=== PATIENT | male | born 1960 | race Caucasian/White ===

== ENCOUNTER 2023-02-03 04:34 | Emergency (ER) | payer MEDICAID ==
[~2023-02-03] VITALS: Ht 180.3 cm; Wt 68.2 kg
[~2023-02-03 04:34] MED LIST: CLIN-97 PO; NO HOME MEDS; ONDA4TAB59 PO
[2023-02-03 04:40] VITALS: BP 111/74
[2023-02-03] MEDS ORDERED: HYDROcodone/acetaminophen 10/325mg tab PO ONE (04:50)
[2023-02-03] MEDS ORDERED: IBUP-1985 PO (05:15)
[2023-02-03] MEDS ORDERED: HYDR-3965 PO (05:15)
== END 2023-02-03 05:27 | disposition home or self-care (01) ==
LOC: ER 04:35
DX: M25.512 Pain in left shoulder (principal); G89.29 Other chronic pain; M54.9 Dorsalgia, unspecified; Z79.899 Other long term (current) drug therapy
CPT/HCPCS: 73030; 99283

== ENCOUNTER 2023-03-30 07:48 | Emergency (ER) | payer MEDICAID ==
[~2023-03-30] VITALS: Ht 180.3 cm; Wt 58.0 kg
[~2023-03-30 07:48] MED LIST changes: +IBUP-1985 PO
[2023-03-30 07:55] VITALS: TEMP 96.9
[2023-03-30 08:42] LABS: CLARITY,URINE CLEAR (Clear); COLOR,URINE YELLOW (Yellow); GLUCOSE, URINE NEGATIVE (Neg); KETONES,URINE NEGATIVE (Neg); LEUKOCYTE ESTERASE ,URINE NEGATIVE (Neg); NITRITES, URINE NEGATIVE (Neg); OCCULT BLOOD,URINE NEGATIVE (Neg); PH,URINE 5.5 (4.8-8.0); PROTEIN,URINE NEGATIVE (Neg); UA COLLECTION TYPE CLN CATCH MIDSTREAM; UROBILINOGEN,URINE 0.2 E.U/dL (0.2-1.0)
[2023-03-30 08:47] LABS: BASOPHILS % (AUTO) 0.2 % (0-1); EOSINOPHILS # (AUTO) 0.4 X10'3 (0-0.9); EOSINOPHILS % (AUTO) 5.5 % (0-6); HEMATOCRIT 40.7 % (42.0-52.0); HEMOGLOBIN 13.6 g/dl (14.0-17.9); LYMPHOCYTES # (AUTO) 1.7 X10'3 (1.1-4.8); LYMPHOCYTES % (AUTO) 21.8 % (21-51); MEAN CORPUSCULAR HEMOGLOBIN 29.2 PG (27.0-31.0); MEAN CORPUSCULAR HGB CONC 33.4 g/dL (33.0-36.5); MEAN CORPUSCULAR VOLUME 87.5 FL (78-98); MEAN PLATELET VOLUME 7.1 FL (7.4-10.4); MONOCYTES # (AUTO) 0.7 X10'3 (0-0.9); MONOCYTES % (AUTO) 8.5 % (2-12); NEUTROPHILS # (AUTO) 4.9 X10'3 (1.8-7.7); PLATELET COUNT 315 X10'3 (140-440); RED BLOOD COUNT 4.65 X10'6 (4.70-6.10); RED CELL DISTRIBUTION WIDTH 13.8 % (11.5-14.5); WHITE BLOOD COUNT 7.6 X10'3 (4.5-11.0)
[2023-03-30 09:03] LABS: ALANINE AMINOTRANSFERASE 28 U/L (12-78); ALBUMIN 3.4 G/DL (3.4-5.0); ALKALINE PHOSPHATASE 76 IU/L (46-116); ANION GAP 8 (8-16); ASPARTATE AMINO TRANSFERASE 18 U/L (10-37); BILIRUBIN,TOTAL 0.3 MG/DL (0.1-1.0); BLOOD UREA NITROGEN 17 MG/DL (7-18); BUN/CREATININE RATIO 19.8 (10.0-20.0); CALCIUM 8.7 MG/DL (8.5-10.1); CHLORIDE 107 MMOL/L (99-107); CREATININE 0.86 MG/DL (0.60-1.10); GLUCOSE 111 MG/DL (70-104); LIPASE 133 U/L (73-393); POTASSIUM 4.1 MMOL/L (3.5-5.1); SODIUM 143 MMOL/L (135-145); TOTAL CARBON DIOXIDE 28.5 MMOL/L (24-32); TOTAL PROTEIN 6.9 G/DL (6.4-8.2); eGFR 90 ML/MIN
[2023-03-30] MEDS ORDERED: iohexol 300mg/ml 100ml inj. ONE (09:05)
[2023-03-30 09:06] VITALS: BP 127/77; PULSE 55; O2SAT 98
[2023-03-30 09:08] VITALS: RESP 16
== END 2023-03-30 11:47 | disposition home or self-care (01) ==
LOC: ER 07:48
DX: R10.84 Generalized abdominal pain (principal); K59.00 Constipation, unspecified; G89.29 Other chronic pain; Z79.2 Long term (current) use of antibiotics; Z79.899 Other long term (current) drug therapy
CPT/HCPCS: 36415; 74177; 80053; 81003; 83690; 85025; 99285; J3490; Q9967

== ENCOUNTER 2023-09-04 13:42 | Emergency (ER) | payer MEDICARE, MEDICAID ==
[~2023-09-04] VITALS: Ht 180.3 cm; Wt 70.5 kg
[2023-09-04 14:31] LABS: BASOPHILS # (AUTO) 0.1 X10'3 (0-0.2); BASOPHILS % (AUTO) 1.2 % (0-1); EOSINOPHILS # (AUTO) 0.1 X10'3 (0-0.9); HEMATOCRIT 40.7 % (42.0-52.0); HEMOGLOBIN 13.5 g/dl (14.0-17.9); LYMPHOCYTES # (AUTO) 1.4 X10'3 (1.1-4.8); LYMPHOCYTES % (AUTO) 20.4 % (21-51); MEAN CORPUSCULAR HEMOGLOBIN 29.6 PG (27.0-31.0); MEAN CORPUSCULAR HGB CONC 33.2 g/dL (33.0-36.5); MEAN CORPUSCULAR VOLUME 89.3 FL (78-98); MEAN PLATELET VOLUME 7.1 FL (7.4-10.4); MONOCYTES # (AUTO) 0.6 X10'3 (0-0.9); MONOCYTES % (AUTO) 8.6 % (2-12); NEUTROPHILS # (AUTO) 4.6 X10'3 (1.8-7.7); NEUTROPHILS % (AUTO) 67.8 % (42-75); PLATELET COUNT 251 X10'3 (140-440); RED BLOOD COUNT 4.56 X10'6 (4.70-6.10); RED CELL DISTRIBUTION WIDTH 13.6 % (11.5-14.5); WHITE BLOOD COUNT 6.8 X10'3 (4.5-11.0)
[2023-09-04 14:48] LABS: ALANINE AMINOTRANSFERASE 36 U/L (12-78); ALBUMIN 3.3 G/DL (3.4-5.0); ALBUMIN/GLOBULIN RATIO 0.9 (1.1-1.5); ALKALINE PHOSPHATASE 75 IU/L (46-116); ANION GAP 10 (8-16); ASPARTATE AMINO TRANSFERASE 27 U/L (10-37); BILIRUBIN,TOTAL 0.3 MG/DL (0.1-1.0); BLOOD UREA NITROGEN 15 MG/DL (7-18); BUN/CREATININE RATIO 20.5 (10.0-20.0); CALCIUM 8.9 MG/DL (8.5-10.1); CHLORIDE 105 MMOL/L (99-107); CREATININE 0.73 MG/DL (0.60-1.10); GLUCOSE 113 MG/DL (70-104); LIPASE 80 U/L (16-77); POTASSIUM 4.1 MMOL/L (3.5-5.1); SODIUM 137 MMOL/L (135-145); TOTAL CARBON DIOXIDE 22.4 MMOL/L (24-32); eCRCL 101 ML/MIN; eGFR > 90 ML/MIN
[2023-09-04] MEDS ORDERED: HYDROmorphone 1 mg/ml syringe IV ONE (15:30)
[2023-09-04] MEDS ORDERED: ondansetron/PF 4mg/2ml inj IV ONE (15:30)
[2023-09-04] MEDS ORDERED: normal saline 1000ML IV soln IVB ONE (15:30)
[2023-09-04] MEDS ORDERED: iohexol 300mg/ml 100ml inj. ONE (15:31)
[2023-09-04 16:29] LABS: BILIRUBIN,URINE NEGATIVE (Neg); CLARITY,URINE CLEAR (Clear); COLOR,URINE YELLOW (Yellow); GLUCOSE, URINE NEGATIVE (Neg); KETONES,URINE NEGATIVE (Neg); LEUKOCYTE ESTERASE ,URINE NEGATIVE (Neg); OCCULT BLOOD,URINE NEGATIVE (Neg); PROTEIN,URINE NEGATIVE (Neg); UROBILINOGEN,URINE 0.2 E.U/dL (0.2-1.0)
[2023-09-04 16:32] LABS: UA COLLECTION TYPE URINAL
[2023-09-04 16:33] LABS: NITRITES, URINE NEGATIVE (Neg)
[2023-09-04 19:21] VITALS: BP 114/84; PULSE 73; RESP 16; TEMP 98; O2SAT 99
== END 2023-09-04 19:24 | disposition home or self-care (01) ==
LOC: ER 13:42
DX: R10.84 Generalized abdominal pain (principal); M54.30 Sciatica, unspecified side; G89.29 Other chronic pain; Z79.2 Long term (current) use of antibiotics; Z79.899 Other long term (current) drug therapy
CPT/HCPCS: 36415; 74177; 80053; 81003; 83690; 85025; 96361; 96374; 96375; 99285; J1170; J2405; J3490; J7030; Q9967

== ENCOUNTER 2024-02-06 16:24 | Emergency (ER) | payer MEDICARE, MEDICAID | END 2024-02-06 18:12 | disposition left against medical advice (07) | LOC: ER 16:24 | DX: R10.84 Generalized abdominal pain (principal); Z53.21 Procedure and treatment not carried out due to patient leaving prior to being seen by health care provider ==

== ENCOUNTER 2024-02-12 11:17 | Emergency (ER) | payer MEDICARE, MEDICAID ==
[~2024-02-12] VITALS: Ht 175.3 cm; Wt 65.0 kg
[2024-02-12 11:38] LABS: BASOPHILS # (AUTO) 0.1 X10'3 (0-0.2); BASOPHILS % (AUTO) 0.8 % (0-1); EOSINOPHILS # (AUTO) 0.2 X10'3 (0-0.9); EOSINOPHILS % (AUTO) 2.7 % (0-6); HEMATOCRIT 38.2 % (42.0-52.0); HEMOGLOBIN 12.4 g/dl (14.0-17.9); LYMPHOCYTES # (AUTO) 1.4 X10'3 (1.1-4.8); MEAN CORPUSCULAR HEMOGLOBIN 28.8 PG (27.0-31.0); MEAN CORPUSCULAR HGB CONC 32.4 g/dL (33.0-36.5); MEAN CORPUSCULAR VOLUME 88.8 FL (78-98); MEAN PLATELET VOLUME 7.1 FL (7.4-10.4); MONOCYTES # (AUTO) 0.7 X10'3 (0-0.9); MONOCYTES % (AUTO) 9.3 % (2-12); NEUTROPHILS # (AUTO) 5.3 X10'3 (1.8-7.7); NEUTROPHILS % (AUTO) 69.2 % (42-75); PLATELET COUNT 261 X10'3 (140-440); RED BLOOD COUNT 4.31 X10'6 (4.70-6.10); RED CELL DISTRIBUTION WIDTH 14.1 % (11.5-14.5); WHITE BLOOD COUNT 7.6 X10'3 (4.5-11.0)
[2024-02-12] MEDS: ketorolac tromethamine 15mg/ml inj. IV ONE (11:50)
[2024-02-12 11:56] LABS: ALANINE AMINOTRANSFERASE 35 U/L (12-78); ALBUMIN 3.3 G/DL (3.4-5.0); ALBUMIN/GLOBULIN RATIO 0.9 (1.1-1.5); ALKALINE PHOSPHATASE 68 IU/L (46-116); ANION GAP 5 (8-16); ASPARTATE AMINO TRANSFERASE 20 U/L (10-37); BILIRUBIN,TOTAL 0.2 MG/DL (0.1-1.0); BLOOD UREA NITROGEN 18 MG/DL (7-18); BUN/CREATININE RATIO 21.4 (10.0-20.0); CHLORIDE 105 MMOL/L (99-107); CREATININE 0.84 MG/DL (0.60-1.10); GLUCOSE 110 MG/DL (70-104); LIPASE 36 U/L (16-77); POTASSIUM 4.3 MMOL/L (3.5-5.1); SODIUM 140 MMOL/L (135-145); TOTAL CARBON DIOXIDE 29.6 MMOL/L (24-32); TOTAL PROTEIN 6.8 G/DL (6.4-8.2); eCRCL 81 ML/MIN; eGFR > 90 ML/MIN
[2024-02-12 12:00] LABS: BILIRUBIN,URINE NEGATIVE (Neg); CLARITY,URINE CLEAR (Clear); COLOR,URINE YELLOW (Yellow); GLUCOSE, URINE NEGATIVE (Neg); KETONES,URINE NEGATIVE (Neg); LEUKOCYTE ESTERASE ,URINE NEGATIVE (Neg); NITRITES, URINE NEGATIVE (Neg); OCCULT BLOOD,URINE NEGATIVE (Neg); PH,URINE 5.5 (4.8-8.0); PROTEIN,URINE NEGATIVE (Neg); UROBILINOGEN,URINE 0.2 E.U/dL (0.2-1.0)
[2024-02-12 12:05] LABS: UA COLLECTION TYPE CLN CATCH MIDSTREAM
[2024-02-12] MEDS ORDERED: DOCU100C40 PO (13:00)
[2024-02-12 13:19] VITALS: BP 93/65; PULSE 62; RESP 16; TEMP 97.7; O2SAT 100
== END 2024-02-12 13:24 | disposition home or self-care (01) ==
LOC: ER 11:17
DX: R10.31 Right lower quadrant pain (principal); G89.29 Other chronic pain; M54.9 Dorsalgia, unspecified; F17.210 Nicotine dependence, cigarettes, uncomplicated; Z79.1 Long term (current) use of non-steroidal anti-inflammatories (NSAID); Z79.2 Long term (current) use of antibiotics; Z79.899 Other long term (current) drug therapy
CPT/HCPCS: 36415; 74176; 80053; 81003; 83690; 84145; 85025; 96374; 99285; J1885

== ENCOUNTER 2024-04-30 12:50 | Emergency (ER) | payer MEDICARE, MEDICAID ==
[~2024-04-30] VITALS: Ht 170.2 cm; Wt 63.6 kg
[~2024-04-30 12:50] MED LIST changes: +DOCU100C40 PO
[2024-04-30] MEDS: normal saline 1000ML IV soln IVB ONE (13:35)
[2024-04-30] MEDS: glycopyrrolate 0.2mg/ml inj IV ONE (13:37)
[2024-04-30] MEDS: LORazepam 2 mg/ml vial IV ONE (13:38)
[2024-04-30] MEDS: diphenhydrAMINE 50 mg/ml inj IV ONE (13:38)
[2024-04-30] MEDS: metoclopramide 5 mg/ml inj IV ONE (13:39)
[2024-04-30] MEDS: ketorolac trometh 15mg/ml vial 15 MG/ML ML IV ONE (13:40)
[2024-04-30 13:47] LABS: BASOPHILS # (AUTO) 0.1 X10'3 (0-0.2); BASOPHILS % (AUTO) 1.4 % (0-1); EOSINOPHILS # (AUTO) 0.2 X10'3 (0-0.9); EOSINOPHILS % (AUTO) 4.6 % (0-6); HEMATOCRIT 39.2 % (42.0-52.0); HEMOGLOBIN 12.9 g/dl (14.0-17.9); LYMPHOCYTES # (AUTO) 1.7 X10'3 (1.1-4.8); LYMPHOCYTES % (AUTO) 34.1 % (21-51); MEAN CORPUSCULAR HEMOGLOBIN 29.1 PG (27.0-31.0); MEAN CORPUSCULAR HGB CONC 32.8 g/dL (33.0-36.5); MEAN CORPUSCULAR VOLUME 88.8 FL (78-98); MEAN PLATELET VOLUME 7.5 FL (7.4-10.4); MONOCYTES # (AUTO) 0.5 X10'3 (0-0.9); MONOCYTES % (AUTO) 9.6 % (2-12); NEUTROPHILS # (AUTO) 2.6 X10'3 (1.8-7.7); NEUTROPHILS % (AUTO) 50.3 % (42-75); PLATELET COUNT 274 X10'3 (140-440); RED BLOOD COUNT 4.41 X10'6 (4.70-6.10); RED CELL DISTRIBUTION WIDTH 13.9 % (11.5-14.5); WHITE BLOOD COUNT 5.1 X10'3 (4.5-11.0)
[2024-04-30 14:03] LABS: ALANINE AMINOTRANSFERASE 43 U/L (12-78); ALBUMIN 3.4 G/DL (3.4-5.0); ALKALINE PHOSPHATASE 74 IU/L (46-116); ANION GAP 9 (8-16); ASPARTATE AMINO TRANSFERASE 24 U/L (10-37); BILIRUBIN,TOTAL 0.3 MG/DL (0.1-1.0); BLOOD UREA NITROGEN 11 MG/DL (7-18); BUN/CREATININE RATIO 13.9 (10.0-20.0); CALCIUM 8.9 MG/DL (8.5-10.1); CHLORIDE 107 MMOL/L (99-107); CREATININE 0.79 MG/DL (0.60-1.10); GLUCOSE 100 MG/DL (70-104); LIPASE 29 U/L (16-77); POTASSIUM 3.9 MMOL/L (3.5-5.1); SODIUM 143 MMOL/L (135-145); TOTAL CARBON DIOXIDE 26.8 MMOL/L (24-32); TOTAL PROTEIN 6.8 G/DL (6.4-8.2); eCRCL 84 ML/MIN; eGFR > 90 ML/MIN
[2024-04-30] MEDS ORDERED: iohexol 300mg/ml 100ml inj. ONE (14:38)
[2024-04-30 16:02] VITALS: TEMP 97.8
[2024-04-30] MEDS ORDERED: SUCR1TAB PO (16:38)
[2024-04-30] MEDS ORDERED: OMEP40CA21 PO (16:38)
[2024-04-30 16:59] VITALS: BP 135/79; PULSE 51; RESP 18; O2SAT 99
== END 2024-04-30 17:06 | disposition home or self-care (01) ==
LOC: ER 12:50
DX: R10.9 Unspecified abdominal pain (principal); G89.29 Other chronic pain; M54.9 Dorsalgia, unspecified; F17.210 Nicotine dependence, cigarettes, uncomplicated; Z79.2 Long term (current) use of antibiotics; Z79.1 Long term (current) use of non-steroidal anti-inflammatories (NSAID)
CPT/HCPCS: 36415; 74177; 76700; 80053; 83690; 85025; 96361; 96374; 96375; 99285; J1200; J1885; J2060; J2765; J3490; J7030; Q9967; 74176

== ENCOUNTER 2024-07-30 10:03 | Emergency (ER) | payer MEDICARE, MEDICAID ==
[~2024-07-30] VITALS: Ht 172.7 cm; Wt 63.1 kg
[~2024-07-30 10:03] MED LIST changes: +OMEP40CA21 PO; +SUCR1TAB PO
[2024-07-30] MEDS ORDERED: ACET-1017 PO (12:17)
[2024-07-30] MEDS ORDERED: IBUP-1986 PO (12:17)
[2024-07-30] MEDS ORDERED: LIDO700A32 TOP (12:17)
[2024-07-30] MEDS: acetaminophen 325mg tablet PO ONE (12:25)
[2024-07-30] MEDS: ketorolac trometh 15mg/ml vial 15 MG/ML ML IM ONE (12:27)
[2024-07-30] MEDS: LIDOcaine 5% patch TP ONE (12:29)
[2024-07-30 12:37] VITALS: BP 122/68; PULSE 65; RESP 17; TEMP 98; O2SAT 99
== END 2024-07-30 12:38 | disposition home or self-care (01) ==
LOC: ER 10:04
DX: M54.41 Lumbago with sciatica, right side (principal); G89.29 Other chronic pain; F17.200 Nicotine dependence, unspecified, uncomplicated; Z79.1 Long term (current) use of non-steroidal anti-inflammatories (NSAID); Z79.899 Other long term (current) drug therapy; Z98.890 Other specified postprocedural states
CPT/HCPCS: 96372; 99283; J1885

== ENCOUNTER 2024-08-18 12:08 | Emergency (ER) | payer MEDICARE, MEDICAID ==
[~2024-08-18] VITALS: Ht 175.3 cm; Wt 65.9 kg
[~2024-08-18 12:08] MED LIST changes: +IBUP-1986 PO; +LIDO700A32 TOP
[2024-08-18 13:08] LABS: BASOPHILS # (AUTO) 0.1 X10'3 (0-0.2); BASOPHILS % (AUTO) 1.1 % (0-1); EOSINOPHILS # (AUTO) 0.4 X10'3 (0-0.9); EOSINOPHILS % (AUTO) 5.6 % (0-6); HEMATOCRIT 40.5 % (42.0-52.0); HEMOGLOBIN 13.7 g/dl (14.0-17.9); LYMPHOCYTES # (AUTO) 1.5 X10'3 (1.1-4.8); LYMPHOCYTES % (AUTO) 21.2 % (21-51); MEAN CORPUSCULAR HEMOGLOBIN 30.1 PG (27.0-31.0); MEAN CORPUSCULAR HGB CONC 33.8 g/dL (33.0-36.5); MEAN CORPUSCULAR VOLUME 89.1 FL (78-98); MEAN PLATELET VOLUME 7.1 FL (7.4-10.4); MONOCYTES # (AUTO) 0.7 X10'3 (0-0.9); MONOCYTES % (AUTO) 9.4 % (2-12); NEUTROPHILS # (AUTO) 4.5 X10'3 (1.8-7.7); NEUTROPHILS % (AUTO) 62.7 % (42-75); PLATELET COUNT 327 X10'3 (140-440); RED BLOOD COUNT 4.55 X10'6 (4.70-6.10); RED CELL DISTRIBUTION WIDTH 13.7 % (11.5-14.5); WHITE BLOOD COUNT 7.2 X10'3 (4.5-11.0)
[2024-08-18 13:22] LABS: ALANINE AMINOTRANSFERASE 56 U/L (12-78); ALBUMIN 3.6 G/DL (3.4-5.0); ALKALINE PHOSPHATASE 81 IU/L (46-116); ANION GAP 8 (8-16); ASPARTATE AMINO TRANSFERASE 28 U/L (10-37); BILIRUBIN,TOTAL 0.3 MG/DL (0.1-1.0); BLOOD UREA NITROGEN 17 MG/DL (7-18); BUN/CREATININE RATIO 18.7 (10.0-20.0); CALCIUM 8.6 MG/DL (8.5-10.1); CHLORIDE 104 MMOL/L (99-107); CREATININE 0.91 MG/DL (0.60-1.10); GLUCOSE 114 MG/DL (70-104); LIPASE 122 U/L (16-77); POTASSIUM 4.1 MMOL/L (3.5-5.1); SODIUM 139 MMOL/L (135-145); TOTAL CARBON DIOXIDE 27.3 MMOL/L (24-32); TOTAL PROTEIN 7.2 G/DL (6.4-8.2); eCRCL 74 ML/MIN; eGFR 83 ML/MIN
[2024-08-18 13:40] VITALS: BP 122/82; PULSE 60; RESP 16; TEMP 98; O2SAT 100
== END 2024-08-18 14:09 | disposition home or self-care (01) ==
LOC: ER 12:09
DX: K46.9 Unspecified abdominal hernia without obstruction or gangrene (principal); Z79.2 Long term (current) use of antibiotics; Z79.899 Other long term (current) drug therapy
CPT/HCPCS: 36415; 76700; 80053; 83690; 85025; 99284

== ENCOUNTER 2024-09-12 15:06 | Emergency (ER) | payer MEDICARE, MEDICAID ==
[~2024-09-12] VITALS: Ht 177.8 cm; Wt 65.9 kg
[2024-09-12 15:58] LABS: BASOPHILS # (AUTO) 0.1 X10'3 (0-0.2); BASOPHILS % (AUTO) 1.5 % (0-1); EOSINOPHILS # (AUTO) 0.3 X10'3 (0-0.9); EOSINOPHILS % (AUTO) 4.8 % (0-6); HEMATOCRIT 37.1 % (42.0-52.0); HEMOGLOBIN 12.5 g/dl (14.0-17.9); LYMPHOCYTES # (AUTO) 2.1 X10'3 (1.1-4.8); LYMPHOCYTES % (AUTO) 30.2 % (21-51); MEAN CORPUSCULAR HEMOGLOBIN 30.2 PG (27.0-31.0); MEAN CORPUSCULAR HGB CONC 33.7 g/dL (33.0-36.5); MEAN CORPUSCULAR VOLUME 89.5 FL (78-98); MONOCYTES # (AUTO) 0.7 X10'3 (0-0.9); MONOCYTES % (AUTO) 10.2 % (2-12); NEUTROPHILS # (AUTO) 3.8 X10'3 (1.8-7.7); NEUTROPHILS % (AUTO) 53.3 % (42-75); PLATELET COUNT 328 X10'3 (140-440); RED BLOOD COUNT 4.14 X10'6 (4.70-6.10); RED CELL DISTRIBUTION WIDTH 13.4 % (11.5-14.5)
[2024-09-12 16:15] LABS: ALANINE AMINOTRANSFERASE 52 U/L (12-78); ALBUMIN 3.7 G/DL (3.4-5.0); ALBUMIN/GLOBULIN RATIO 1.2 (1.1-1.5); ALKALINE PHOSPHATASE 79 IU/L (46-116); ANION GAP 5 (8-16); ASPARTATE AMINO TRANSFERASE 26 U/L (10-37); BILIRUBIN,TOTAL 0.3 MG/DL (0.1-1.0); BLOOD UREA NITROGEN 14 MG/DL (7-18); BUN/CREATININE RATIO 16.5 (10.0-20.0); CALCIUM 8.9 MG/DL (8.5-10.1); CHLORIDE 106 MMOL/L (99-107); CREATININE 0.85 MG/DL (0.60-1.10); GLUCOSE 125 MG/DL (70-104); LIPASE 41 U/L (16-77); SODIUM 140 MMOL/L (135-145); TOTAL CARBON DIOXIDE 29.4 MMOL/L (24-32); TOTAL PROTEIN 6.8 G/DL (6.4-8.2); eCRCL 80 ML/MIN; eGFR 90 ML/MIN
[2024-09-12] MEDS ORDERED: iohexol 350MG/ML 100ml bottle IV ONE (16:29)
[2024-09-12 16:30] LABS: D-DIMER 0.36 MG/L FEU (0-0.50)
[2024-09-12] MEDS ORDERED: iohexol 350 MG/ML 50ML vial IV ONE (16:40)
[2024-09-12] MEDS: morphine 10mg/ml inj. IV ONE (17:00)
[2024-09-12] MEDS: normal saline 1000ML IV soln IVB ONE (17:00)
[2024-09-12] MEDS: ondansetron/PF 4mg/2ml inj IV ONE (17:00)
[2024-09-12] MEDS: ketorolac trometh 15mg/ml vial 15 MG/ML ML IV ONE (18:41)
[2024-09-12] MEDS ORDERED: OXYC-658 PO (19:16)
[2024-09-12 19:26] VITALS: BP 142/80; PULSE 68; RESP 18; TEMP 98.8; O2SAT 98
== END 2024-09-12 19:28 | disposition home or self-care (01) ==
LOC: ER 15:07
DX: R10.31 Right lower quadrant pain (principal); G89.29 Other chronic pain; M54.9 Dorsalgia, unspecified; F17.210 Nicotine dependence, cigarettes, uncomplicated; Z79.1 Long term (current) use of non-steroidal anti-inflammatories (NSAID); Z79.899 Other long term (current) drug therapy; Z98.890 Other specified postprocedural states
CPT/HCPCS: 36415; 71275; 74174; 74176; 80053; 83690; 85025; 85379; 96361; 96374; 96375; 99285; J1885; J2270; J2405; J7030; Q9967; 99284; J2274

== ENCOUNTER 2024-10-08 10:12 | Emergency (ER) | payer MEDICARE, MEDICAID ==
[~2024-10-08] VITALS: Ht 177.8 cm; Wt 65.0 kg
[~2024-10-08 10:12] MED LIST changes: +OXYC-658 PO
[2024-10-08] MEDS: normal saline 1000ML IV soln IV ONE (10:53)
[2024-10-08 11:12] LABS: BASOPHILS # (AUTO) 0.1 X10'3 (0-0.2); EOSINOPHILS # (AUTO) 0.3 X10'3 (0-0.9); EOSINOPHILS % (AUTO) 3.3 % (0-6); HEMATOCRIT 38.1 % (42.0-52.0); HEMOGLOBIN 12.8 g/dl (14.0-17.9); LYMPHOCYTES # (AUTO) 1.9 X10'3 (1.1-4.8); LYMPHOCYTES % (AUTO) 23.1 % (21-51); MEAN CORPUSCULAR HEMOGLOBIN 29.7 PG (27.0-31.0); MEAN CORPUSCULAR HGB CONC 33.6 g/dL (33.0-36.5); MEAN CORPUSCULAR VOLUME 88.3 FL (78-98); MEAN PLATELET VOLUME 7.3 FL (7.4-10.4); MONOCYTES # (AUTO) 0.6 X10'3 (0-0.9); MONOCYTES % (AUTO) 7.9 % (2-12); NEUTROPHILS # (AUTO) 5.3 X10'3 (1.8-7.7); NEUTROPHILS % (AUTO) 64.7 % (42-75); PLATELET COUNT 362 X10'3 (140-440); RED BLOOD COUNT 4.31 X10'6 (4.70-6.10); RED CELL DISTRIBUTION WIDTH 13.4 % (11.5-14.5); WHITE BLOOD COUNT 8.2 X10'3 (4.5-11.0)
[2024-10-08] MEDS: ondansetron/PF 4mg/2ml inj IV ONE (11:21)
[2024-10-08 11:28] LABS: ALBUMIN 3.6 G/DL (3.4-5.0); ANION GAP 7 (8-16); BLOOD UREA NITROGEN 20 MG/DL (7-18); BUN/CREATININE RATIO 24.4 (10.0-20.0); CALCIUM 9.4 MG/DL (8.5-10.1); CHLORIDE 106 MMOL/L (99-107); CREATININE 0.82 MG/DL (0.60-1.10); GLUCOSE 138 MG/DL (70-104); POTASSIUM 3.8 MMOL/L (3.5-5.1); SODIUM 141 MMOL/L (135-145); TOTAL CARBON DIOXIDE 28.5 MMOL/L (24-32); eCRCL 81 ML/MIN; eGFR > 90 ML/MIN
[2024-10-08] MEDS: ketamine 50mg/5ml syringe IV ONE (11:36)
[2024-10-08] MEDS ORDERED: iohexol 350MG/ML 100ml bottle IV ONE (12:51)
[2024-10-08 13:41] VITALS: BP 109/70; PULSE 77; RESP 13; O2SAT 98
[2024-10-08 14:59] VITALS: TEMP 96.3
== END 2024-10-08 15:00 | disposition left against medical advice (07) ==
LOC: ER 10:13
DX: R10.9 Unspecified abdominal pain (principal); I77.4 Celiac artery compression syndrome; G89.29 Other chronic pain; I95.9 Hypotension, unspecified; F17.210 Nicotine dependence, cigarettes, uncomplicated; Z98.890 Other specified postprocedural states
CPT/HCPCS: 36415; 71045; 74174; 80048; 83605; 83735; 84145; 85025; 87040; 93005; 96361; 96374; 96375; 99285; J2405; J3490; J7030; Q9967; Z7610

== ENCOUNTER 2024-10-09 07:27 | Emergency (ER) | payer MEDICARE, MEDICAID ==
[~2024-10-09] VITALS: Ht 177.8 cm; Wt 65.0 kg
[2024-10-09 07:30] VITALS: BP 122/71; PULSE 74; RESP 16; TEMP 98.5; O2SAT 98
[2024-10-09] MEDS ORDERED: normal saline 1000ml 1,000 ML IV ONE (07:50)
[2024-10-09 08:40] LABS: ALBUMIN 3.4 G/DL (3.4-5.0); ANION GAP 4 (8-16); BLOOD UREA NITROGEN 13 MG/DL (7-18); CALCIUM 8.8 MG/DL (8.5-10.1); CHLORIDE 106 MMOL/L (99-107); CREATININE 0.81 MG/DL (0.60-1.10); GLUCOSE 111 MG/DL (70-104); POTASSIUM 4.2 MMOL/L (3.5-5.1); SODIUM 139 MMOL/L (135-145); TOTAL CARBON DIOXIDE 29.4 MMOL/L (24-32); eCRCL 82 ML/MIN; eGFR > 90 ML/MIN
== END 2024-10-09 12:43 | disposition home or self-care (01) ==
LOC: ER 07:27
DX: I77.4 Celiac artery compression syndrome (principal); Z88.8 Allergy status to other drugs, medicaments and biological substances; Z98.890 Other specified postprocedural states
CPT/HCPCS: 36415; 80048; 99283

== ENCOUNTER 2024-12-15 08:58 | Outpatient (CLI) | payer MEDICARE, MEDICAID ==
[~2024-12-15 08:58] MED LIST changes: -OXYC-658 PO
== END 2024-12-15 23:59 | disposition home or self-care (01) ==
LOC: US 08:58
PROVIDERS: ATTEND Nurse Practitioner Family
DX: K40.91 Unilateral inguinal hernia, without obstruction or gangrene, recurrent (principal)
CPT/HCPCS: 76705

== ENCOUNTER 2025-02-27 14:32 | Emergency (ER) | payer MEDICARE, MEDICAID ==
[~2025-02-27] VITALS: Ht 172.7 cm; Wt 68.2 kg
[~2025-02-27 14:32] MED LIST changes: +LIDO-52 TOP; -LIDO700A32 TOP
[2025-02-27 14:34] VITALS: TEMP 98.4
--- NOTE | 2025-02-27 15:02 | Physician Documentation ---
History of Present Illness Chief Complaint: Abdominal Pain Stated Complaint: HERNIA Time Seen by MD: 14:47 Primary Medical Doctor: NONE HPI This is a 64-year-old male who presents with two years of intermittent right lower quadrant and right groin pain, patient reports that in the past six months the pain has become daily, patient reports that he had a hernia surgery on the area in September however the pain has never resolved. Patient reports that he was seen at this hospital for an outpatient ultrasound in December however his primary care provider never received the results. Patient reports that due to the pain being daily he has decided come to the emergency department. Patient reports the pain does typically subsided night though begins again during his daily activities. Patient reports no fevers. Patient reports regular bowel movements. Medication Reconciliation Allergies: Coded Allergies: ketamine (Verified Allergy, Unknown, 02/27/25) Scheduled Clindamycin HCL* (Clindamycin HCL*), 1 CAP PO Q6H Docusate Sodium (Docusate Sodium), 1 CAP PO Q12H Ibuprofen (Ibuprofen), 1 TAB PO Q8H Ibuprofen (Ibuprofen), 1 TAB PO Q8H Lidocaine (Lidoderm), 1 PATCH TOP DAILY Omeprazole (Prilosec), 1 CAP PO DAILY Ondansetron Hcl (Ondansetron Hcl), 4 MG PO Q6H Scheduled PRN Sucralfate (Sucralfate), 1 GM PO TID PRN for pain Miscellaneous Medications Home Med List (No Home Medications), (Reported) Past Medical History Past Medical History: Chronic Back Pain Past Surgical History: no surgical history, orthopedic surgeries Alcohol Use: Rarely Drug Use: none Lives with: Spouse Lives In: Home Occupation: employed Review of Systems ROS Right-sided groin pain as stated above in the HPI, otherwise all systems are reviewed and negative. Physical Exam Vital Signs: Temperature: 98.4, Source: Temporal, Heart Rate: 87, Respiratory Rate: 16, BP: 168/75, Pulse Oximetry: 99, Weight: 68.180 Oxygen Flow Rate: 0 Physical Exam VITALS: Reviewed and as above. GENERAL: Alert, nontoxic appearing, no apparent distress. RESPIRATORY: No increased work of breathing, no respiratory distress, speaking in full clear sentences, clear lung sounds in all murphy CV: Regular rate and rhythm no murmur BACK: No CVA tenderness GI: Right inguinal tenderness to palpation, unable to palpate area due to pain, no obvious protruding mass from area, no ecchymosis, no erythema. Otherwise abdomen soft, nondistended, nontender, no rebound, no guarding, bowel sounds present Progress Results/Orders Results/Orders Vital Signs 02/27/25 14:34 Temp 98.4 Pulse 87 Resp 16 B/P (MAP) 168/75 Pulse Ox 99 O2 Flow Rate 0 Medical Decision Making Findings This 64-year-old male presented with intermittent right lower quadrant and right groin pain present for the past two years and unchanged for the past six months. A review of records indicated patient had CT of the area in September prior to reported hernia surgery and a ultrasound of the area in December this year. The area was quite tender to palpation though no obvious mass was appreciated on exam. After informing patient that there was evidence of a hernia on his previous ultrasound patient reports that he will follow up with his primary care provider on Saturday as he does not want another CT scan. With shared decision- making CT scan will be deferred until patient is able to follow up with his primary care provider. It is reassuring that pain is focal to the area of previous hernia and patient has not have peritoneal signs, additionally reassuring as the nature of the pain has unchanged over the last two years. Patient was medicated for pain reporting adequate control pain. Patient is otherwise well-appearing and appropriate for outpatient follow up. Differential Dx:Considerations: Include: Aortic dissection, Appendicitis, Constipation, Diverticular disease, Inflammatory BD, Ischemic bowel, Testicular torsion, Urinary obstruction, Urinary tract infection, Urolithiasis Departure Disposition: HOME / SELF CARE / HOMELESS Impression: Primary Impression: Groin pain, chronic, right Condition: Improved Discharge Instructions: Hernia, Adult, [id number] Additional Instructions: Please follow up with medical records for copy of your ultrasound results, please follow up with the primary care provider on Saturday. Please return to the emergency department for any new or worsening concerning symptoms including but not limited to worsening pain or the inability to have a bowel movement or pass stool, or if you develop a fever. Referrals: NO PRIMARY CARE PROVIDER (PCP) Education Educated: Patient Educated regarding: diagnosis, treatment, prognosis, need for follow up Signature Scribe Signature: No scribe Attestation: The note accurately reflects work and decisions made by me.PHU Dobbins 02:27 CAMI BUTLER Feb 27, 2025 15:02
[2025-02-27 15:08] LABS: BASOPHILS # (AUTO) 0.1 X10'3 (0-0.2); BASOPHILS % (AUTO) 1.1 % (0-1); EOSINOPHILS # (AUTO) 0.2 X10'3 (0-0.9); EOSINOPHILS % (AUTO) 2.7 % (0-6); HEMATOCRIT 41.9 % (42.0-52.0); HEMOGLOBIN 13.9 g/dl (14.0-17.9); LYMPHOCYTES # (AUTO) 1.6 X10'3 (1.1-4.8); LYMPHOCYTES % (AUTO) 26.3 % (21-51); MEAN CORPUSCULAR HGB CONC 33.2 g/dL (33.0-36.5); MEAN CORPUSCULAR VOLUME 87.4 FL (78-98); MEAN PLATELET VOLUME 7.1 FL (7.4-10.4); MONOCYTES # (AUTO) 0.6 X10'3 (0-0.9); MONOCYTES % (AUTO) 9.7 % (2-12); NEUTROPHILS # (AUTO) 3.6 X10'3 (1.8-7.7); NEUTROPHILS % (AUTO) 60.2 % (42-75); PLATELET COUNT 298 X10'3 (140-440); RED CELL DISTRIBUTION WIDTH 14.1 % (11.5-14.5)
[2025-02-27 15:23] LABS: ALANINE AMINOTRANSFERASE 31 U/L (12-78); ALBUMIN 3.6 G/DL (3.4-5.0); ALKALINE PHOSPHATASE 98 IU/L (46-116); ANION GAP 8 (8-16); ASPARTATE AMINO TRANSFERASE 25 U/L (10-37); BILIRUBIN,TOTAL 0.2 MG/DL (0.1-1.0); BLOOD UREA NITROGEN 12 MG/DL (7-18); BUN/CREATININE RATIO 14.1 (10.0-20.0); CALCIUM 8.6 MG/DL (8.5-10.1); CHLORIDE 105 MMOL/L (99-107); CREATININE 0.85 MG/DL (0.60-1.10); GLUCOSE 118 MG/DL (70-104); LIPASE 54 U/L (16-77); POTASSIUM 3.9 MMOL/L (3.5-5.1); SODIUM 140 MMOL/L (135-145); TOTAL CARBON DIOXIDE 27.2 MMOL/L (24-32); TOTAL PROTEIN 7.3 G/DL (6.4-8.2); eCRCL 82 ML/MIN; eGFR 90 ML/MIN
[2025-02-27] MEDS: HYDROcodone/acetaminophen 5mg/325mg tablet PO ONE (15:29)
[2025-02-27 15:52] VITALS: BP 125/75; PULSE 64; RESP 16; O2SAT 100
== END 2025-02-27 15:59 | disposition home or self-care (01) ==
LOC: ER 14:33
DX: G89.29 Other chronic pain (principal); R10.31 Right lower quadrant pain; Z79.899 Other long term (current) drug therapy; Z88.8 Allergy status to other drugs, medicaments and biological substances
CPT/HCPCS: 36415; 80053; 83690; 85025; 99283

== ENCOUNTER 2025-02-28 15:39 | Emergency (ER) | payer MEDICARE, MEDICAID ==
[2025-02-28] MEDS ORDERED: HYDROcodone/acetaminophen 5mg/325mg tablet PO ONE (15:45)
--- NOTE | 2025-02-28 16:03 | Physician Documentation ---
History of Present Illness Stated Complaint: ABD PAIN Primary Medical Doctor: NONE HPI This is a 64-year-old male who presents back to the emergency department for right lower quadrant abdominal and right groin pain, patient was seen yesterday medicated for pain and with shared decision-making his left prior to CT. Patient has been instructed to return to the emergency department for continued pain not managed at home. Patient reported pain was intolerable at home. Medication Reconciliation Allergies: Coded Allergies: ketamine (Verified Allergy, Unknown, 02/27/25) Scheduled Clindamycin HCL* (Clindamycin HCL*), 1 CAP PO Q6H Docusate Sodium (Docusate Sodium), 1 CAP PO Q12H Ibuprofen (Ibuprofen), 1 TAB PO Q8H Ibuprofen (Ibuprofen), 1 TAB PO Q8H Lidocaine (Lidoderm), 1 PATCH TOP DAILY Omeprazole (Prilosec), 1 CAP PO DAILY Ondansetron Hcl (Ondansetron Hcl), 4 MG PO Q6H Scheduled PRN Sucralfate (Sucralfate), 1 GM PO TID PRN for pain Miscellaneous Medications Home Med List (No Home Medications), (Reported) Past Medical History Past Medical History: Chronic Back Pain Past Surgical History: no surgical history, orthopedic surgeries Alcohol Use: Rarely Drug Use: none Lives with: Spouse Lives In: Home Occupation: employed Review of Systems ROS Right lower quadrant abdominal pain and right groin pain as stated above in the HPI, otherwise all systems are reviewed and negative. Physical Exam Physical Exam VITALS: Reviewed and as above. GENERAL: Alert, nontoxic appearing, no apparent distress. HEENT: RESPIRATORY: No increased work of breathing, no respiratory distress, speaking in full clear sentences CHEST: CV: BACK: GI: MUSCULOSKELETAL: SKIN: NEURO: PSYCH: Progress Results/Orders Results/Orders Orders - CAMI BUTLER Urinalysis, Cult If Indicated (02/28/25 15:44) Cbc/Diff (02/28/25 15:44) Lipase (02/28/25 15:44) CMP (02/28/25 15:44) Ct Abdomen Pelvis (02/28/25 15:44) Completed Orders - CAMI BUTLER Hydrocodone/Apap 5/325mg Tab ([place] 5/32 (02/28/25 15:45) Medical Decision Making Findings This 64-year-old male presented to the emergency department due to concern for continued right lower quadrant and right groin pain, patient was to follow up with primary care tomorrow though could not tolerate pain so he would return to the emergency department. Patient was immediately brought to triage room two ahead of other patients and seen by myself, patient endorsed no change in symptoms from when I saw him yesterday therefore abdominal pain labs and CT with contrast was ordered to evaluate the right lower quadrant and right groin for strangulated hernia or incarcerated hernia. Patient was placed back into the ED lobby to await the triage nurse however patient became upset after approximately 5 minutes and left the emergency department. Differential Dx:Considerations: Include: Aortic dissection, Appendicitis, Bowel obstruction, Cholangitis, Cholelithasis, Constipation, Diverticular disease, Esophageal rupture, Esophagitis, Gastritis/PUD, Hernia, Inflammatory BD, Ischemic bowel, Pancreatitis, Testicular torsion, Urinary obstruction, Urinary tract infection, Urolithiasis Departure Disposition: LEFT AWOL/ELOPED Impression: Primary Impression: Abdominal pain Qualified Codes: R10.31 - Right lower quadrant pain Referrals: NO PRIMARY CARE PROVIDER (PCP) Signature Scribe Signature: No scribe Attestation: The note accurately reflects work and decisions made by me.PHU Dobbins 03/05/25 14:36 CAMI BUTLER Feb 28, 2025 16:03
== END 2025-02-28 16:05 | disposition left against medical advice (07) ==
LOC: ER 15:40
DX: R10.31 Right lower quadrant pain (principal); Z79.899 Other long term (current) drug therapy
CPT/HCPCS: 99281; 99282

== ENCOUNTER 2025-02-28 20:40 | Emergency (ER) | payer MEDICARE, MEDICAID ==
[~2025-02-28] VITALS: Ht 177.8 cm; Wt 66.4 kg
[2025-02-28 20:48] VITALS: BP 108/73; PULSE 86; RESP 17; TEMP 98.1; O2SAT 98
[2025-02-28 21:18] LABS: BASOPHILS # (AUTO) 0.1 X10'3 (0-0.2); BASOPHILS % (AUTO) 0.8 % (0-1); EOSINOPHILS # (AUTO) 0.1 X10'3 (0-0.9); EOSINOPHILS % (AUTO) 1.2 % (0-6); HEMOGLOBIN 13.7 g/dl (14.0-17.9); LYMPHOCYTES # (AUTO) 1.8 X10'3 (1.1-4.8); LYMPHOCYTES % (AUTO) 23.7 % (21-51); MEAN CORPUSCULAR HEMOGLOBIN 29.8 PG (27.0-31.0); MEAN CORPUSCULAR HGB CONC 34.2 g/dL (33.0-36.5); MONOCYTES # (AUTO) 0.5 X10'3 (0-0.9); MONOCYTES % (AUTO) 6.7 % (2-12); NEUTROPHILS # (AUTO) 5.1 X10'3 (1.8-7.7); NEUTROPHILS % (AUTO) 67.6 % (42-75); PLATELET COUNT 305 X10'3 (140-440); RED CELL DISTRIBUTION WIDTH 14.1 % (11.5-14.5); WHITE BLOOD COUNT 7.6 X10'3 (4.5-11.0)
[2025-02-28 21:33] LABS: ALANINE AMINOTRANSFERASE 27 U/L (12-78); ALBUMIN 3.6 G/DL (3.4-5.0); ALKALINE PHOSPHATASE 97 IU/L (46-116); ANION GAP 9 (8-16); ASPARTATE AMINO TRANSFERASE 22 U/L (10-37); BILIRUBIN,TOTAL 0.5 MG/DL (0.1-1.0); BLOOD UREA NITROGEN 13 MG/DL (7-18); BUN/CREATININE RATIO 12.5 (10.0-20.0); CALCIUM 8.9 MG/DL (8.5-10.1); CHLORIDE 105 MMOL/L (99-107); CREATININE 1.04 MG/DL (0.60-1.10); GLUCOSE 151 MG/DL (70-104); LIPASE 35 U/L (16-77); POTASSIUM 4.2 MMOL/L (3.5-5.1); SODIUM 142 MMOL/L (135-145); TOTAL CARBON DIOXIDE 28.3 MMOL/L (24-32); TOTAL PROTEIN 7.2 G/DL (6.4-8.2); eCRCL 66 ML/MIN; eGFR 71 ML/MIN
--- NOTE | 2025-02-28 22:06 | Physician Documentation ---
History of Present Illness Chief Complaint: Abdominal Pain Stated Complaint: ABD PAIN Primary Medical Doctor: NONE HPI This is a 64-year-old male who returns to the emergency department due to continued right groin and right lower quadrant abdominal pain. Medication Reconciliation Allergies: Coded Allergies: ketamine (Verified Allergy, Unknown, 02/27/25) Scheduled Clindamycin HCL* (Clindamycin HCL*), 1 CAP PO Q6H Docusate Sodium (Docusate Sodium), 1 CAP PO Q12H Ibuprofen (Ibuprofen), 1 TAB PO Q8H Ibuprofen (Ibuprofen), 1 TAB PO Q8H Lidocaine (Lidoderm), 1 PATCH TOP DAILY Omeprazole (Prilosec), 1 CAP PO DAILY Ondansetron Hcl (Ondansetron Hcl), 4 MG PO Q6H Scheduled PRN Sucralfate (Sucralfate), 1 GM PO TID PRN for pain Miscellaneous Medications Home Med List (No Home Medications), (Reported) Past Medical History Past Medical History: Chronic Back Pain Past Surgical History: no surgical history, orthopedic surgeries Alcohol Use: Rarely Drug Use: none Lives with: Spouse Lives In: Home Occupation: employed Review of Systems ROS As stated above in the HPI, otherwise all systems are reviewed and negative. Physical Exam Vital Signs: Temperature: 98.1, Source: Oral, Heart Rate: 86, Respiratory Rate: 17, BP: 108/73, Pulse Oximetry: 98, Weight: 66.410 Oxygen Flow Rate: 0 Physical Exam VITALS: Reviewed and as above. GENERAL: Alert, nontoxic appearing, no apparent distress. RESPIRATORY: No increased work of breathing, no respiratory distress, speaking in full clear sentences Progress Results/Orders Results/Orders Vital Signs 02/28/25 20:48 Temp 98.1 Pulse 86 Resp 17 B/P (MAP) 108/73 Pulse Ox 98 O2 Flow Rate 0 Laboratory Tests Test 02/28/25 21:08 White Blood Count 7.6 Red Blood Count 4.60 L Hemoglobin 13.7 L Hematocrit 40.0 L Mean Corpuscular Volume 87.0 Mean Corpuscular Hemoglobin 29.8 Mean Corpuscular Hemoglobin Concent 34.2 Red Cell Distribution Width 14.1 Platelet Count 305 Mean Platelet Volume 7.0 L Neutrophils (%) (Auto) 67.6 Lymphocytes (%) (Auto) 23.7 Monocytes (%) (Auto) 6.7 Eosinophils (%) (Auto) 1.2 Basophils (%) (Auto) 0.8 Neutrophils # (Auto) 5.1 Lymphocytes # (Auto) 1.8 Monocytes # (Auto) 0.5 Eosinophils # (Auto) 0.1 Basophils # (Auto) 0.1 CBC Comment Sodium Level 142 Potassium Level 4.2 Chloride Level 105 Carbon Dioxide Level 28.3 Anion Gap 9 Blood Urea Nitrogen 13 Creatinine 1.04 Estimated GFR/1.73 m2 71 BUN/Creatinine Ratio 12.5 Glucose Level 151 H Calcium Level 8.9 Total Bilirubin 0.5 Aspartate Amino Transf (AST/SGOT) 22 Alanine Aminotransferase (ALT/SGPT) 27 Alkaline Phosphatase 97 Total Protein 7.2 Albumin 3.6 Globulin 3.6 Albumin/Globulin Ratio 1.0 L Lipase 35 Chemistry Comments Medical Decision Making Findings MSE performed in triage and patient returned to ED lobby by nursing staff to await available ED room, patient appears to have eloped from ED lobby. Of note patient has been seen multiple times for same concern and has reported close outpatient follow up. Patient in previous visits has become upset after only momentary delays in being placed in a room or while awaiting lab/imaging results and has a eloped multiple times. Differential Dx:Considerations: Include: Angina/ND, Aortic dissection, Appendicitis, Bowel obstruction, Cholangitis, Cholelithasis, Constipation, Diverticular disease, Gastritis/PUD, Gastroenteritis, GI hemorrhage, Hernia, Inflammatory BD, Ischemic bowel, Pancreatitis, Testicular torsion, Trauma, intraabdominal, Urinary obstruction, Urinary tract infection, Urolithiasis Departure Disposition: 07 LEFT AWOL/ELOPED Impression: Primary Impression: Abdominal pain Qualified Codes: R10.31 - Right lower quadrant pain Referrals: NO PRIMARY CARE PROVIDER (PCP) Signature Scribe Signature: No scribe Attestation: The note accurately reflects work and decisions made by me.PHU Dobbins 03/05/25 14:40 CAMI BUTLER Feb 28, 2025 22:06
--- NOTE | 2025-03-01 11:15 | RADIOLOGY REPORT ---
Exam: CT ABDOMEN History: Pain Comparison Study: US ULTRASOUND OF ABDOMEN on DOS: 12/15/24, US ULTRASOUND OF ABDOMEN on DOS: 08/18/24, US ULTRASOUND OF ABDOMEN on DOS: 04/30/24 Technique: Multidetector spiral CT of the abdomen was performed from lung bases to iliac crest. Imaging was performed without IV contrast. Axial, coronal and sagittal multiplanar reformats were obtained from the axial data set by the technologist. Radiation Dose : CT Dose: CTDI volume is 10.8 mGy. Dose-length product is 488 mGy*cm Findings: Evaluation of solid organs is limited due to lack of intravenous contrast use. Lung Bases: No acute or significant lung base finding. Normal heart size. No pleural or pericardial effusion. Liver: The liver is normal in size. No focal lesions. Gallbladder and Biliary Tree: Unremarkable Spleen: Unremarkable Pancreas: The pancreas is grossly normal in appearance. Adrenal Glands: Unremarkable Kidneys: No hydronephrosis. Bilateral punctate nonobstructing renal stones measuring up to 0.2 cm. Visualized Bowel: The stomach is grossly normal in appearance. Moderate volume colonic stool. Mild small bowel wall thickening. Ascites: Absent Lymphadenopathy: No mesenteric, retroperitoneal or periportal lymphadenopathy. Abdominal Wall and Mesentery: Unremarkable. Vasculature: The visualized abdominal aorta is normal in size and caliber. Evaluation of abdominal and pelvic vessels is limited due to lack of intravenous contrast. Musculoskeletal: No aggressive focal bony lesions, acute fractures or dislocation. Multilevel degenerative changes of the spine. Right hip surgical hardware. IMPRESSION: Possible enterocolitis. Moderate volume colonic stool. xam: CT ABDOMEN History: Pain Comparison Study: US ULTRASOUND OF ABDOMEN on DOS: 12/15/24, US ULTRASOUND OF ABDOMEN on DOS: 08/18/24, US ULTRASOUND OF ABDOMEN on DOS: 04/30/24 Technique: Multidetector spiral CT of the abdomen was performed from lung bases to iliac crest. Imaging was performed without IV contrast. Axial, coronal and sagittal multiplanar reformats were obtained from the axial data set by the technologist. Radiation Dose : CT Dose: CTDI volume is 10.8 mGy. Dose-length product is 488 mGy*cm Findings: Evaluation of solid organs is limited due to lack of intravenous contrast use. Lung Bases: No acute or significant lung base finding. Normal heart size. No pleural or pericardial effusion. Liver: The liver is normal in size. No focal lesions. Gallbladder and Biliary Tree: Unremarkable Spleen: Unremarkable Pancreas: The pancreas is grossly normal in appearance. Adrenal Glands: Unremarkable Kidneys: No hydronephrosis. Bilateral punctate nonobstructing renal stones measuring up to 0.2 cm. Visualized Bowel: The stomach is grossly normal in appearance. Moderate volume colonic stool. Mild small bowel wall thickening. Ascites: Absent Lymphadenopathy: No mesenteric, retroperitoneal or periportal lymphadenopathy. Abdominal Wall and Mesentery: Unremarkable. Vasculature: The visualized abdominal aorta is normal in size and caliber. Evaluation of abdominal and pelvic vessels is limited due to lack of intravenous contrast. Musculoskeletal: No aggressive focal bony lesions, acute fractures or dislocation. Multilevel degenerative changes of the spine. Right hip surgical hardware. IMPRESSION: Possible enterocolitis. Moderate volume colonic stool. [facility] ASSOC[facility] HOSPITALCarla
== END 2025-02-28 23:59 | disposition left against medical advice (07) ==
LOC: ER 20:41
DX: R10.31 Right lower quadrant pain (principal); Z88.8 Allergy status to other drugs, medicaments and biological substances; Z79.899 Other long term (current) drug therapy
CPT/HCPCS: 36415; 74150; 74176; 80053; 83690; 85025; 99284

== ENCOUNTER 2025-03-22 21:16 | Emergency (ER) | payer MEDICARE, MEDICAID ==
[~2025-03-22] VITALS: Ht 177.8 cm; Wt 65.0 kg
--- NOTE | 2025-03-22 21:35 | Physician Documentation ---
History of Present Illness ~ Chief Complaint: Groin Pain Stated Complaint: INGUINAL PAIN Time Seen by MD: 21:27 Primary Medical Doctor: NONE HPI Patient presents to the emergency room requesting pain medication. He has been suffering from reported right inguinal hernia for the past two years and that has occasional flares. He is working with For pain control. All he wants his pain medication and he states this is no different than in his usual presentation Medication Reconciliation Allergies: Coded Allergies: ketamine (Verified Allergy, Unknown, 02/27/25) Scheduled Clindamycin HCL* (Clindamycin HCL*), 1 CAP PO Q6H Docusate Sodium (Docusate Sodium), 1 CAP PO Q12H Ibuprofen (Ibuprofen), 1 TAB PO Q8H Ibuprofen (Ibuprofen), 1 TAB PO Q8H Lidocaine (Lidoderm), 1 PATCH TOP DAILY Omeprazole (Prilosec), 1 CAP PO DAILY Ondansetron Hcl (Ondansetron Hcl), 4 MG PO Q6H Scheduled PRN Sucralfate (Sucralfate), 1 GM PO TID PRN for pain Miscellaneous Medications Home Med List (No Home Medications), (Reported) Past Medical History Past Medical History: Chronic Back Pain Past Surgical History: no surgical history, orthopedic surgeries Alcohol Use: Rarely Drug Use: none Lives with: Spouse Lives In: Home Occupation: employed Review of Systems ROS All review of systems negative except as per HPI Physical Exam Vital Signs: Temperature: 98.4, Source: Oral, Heart Rate: 66, Respiratory Rate: 16, BP: 110/68, Pulse Oximetry: 96, Weight: 65.000 Oxygen Flow Rate: 0 Physical Exam General: Patient is awake, alert, oriented x4 in no acute distress Head: Normocephalic and atraumatic. Eyes: Conjunctival normal. EOMI. PERRL. ENT: Mucous membranes moist. Neck: Supple, trachea is midline. Chest: Clear to auscultation bilaterally without rales, rhonchi, or wheezes. There is no accessory muscle use or retractions. Cardiac: RRR without murmurs, gallops, or rubs. Abd: Soft, nondistended, nontender, with normoactive bowel sounds. No guarding, rebound, or rigidity. : Tenderness to palpation to right inguinal area with no appreciable mass. Progress Results/Orders Results/Orders Vital Signs 7/21/25 21:25 Temp 98.4 Pulse 66 Resp 16 B/P (MAP) 110/68 Pulse Ox 96 O2 Flow Rate 0 Medical Decision Making Findings Patient presents to the emergency room with right inguinal pain. Differentials include but are not limited to referred pain, hernia pain, testicular torsion, shingles. Patient has been seen here multiple times for similar circumstance and he does not require a CT scan or labs and this was discussed with the patient and he agrees. He is only requesting pain medication. Instructed patient that he needs to follow up with his doctor for additional pain medication Departure Disposition: HOME / SELF CARE / HOMELESS Impression: Primary Impression: Hernia Condition: Stable Discharge Instructions: Hernia Additional Instructions: Continue to follow up with your doctor regarding pain management. Referrals: NO PRIMARY CARE PROVIDER (PCP) Education Educated: Patient Educated regarding: need for follow up Signature Scribe Signature: No scribe Attestation: The note accurately reflects work and decisions made by me.Chucky Matthew MD 03/22/25 21:41 CHUCKY MATTHEW MD Mar 22, 2025 21:35
[2025-03-22] MEDS: ondansetron 4mg rapidly disintigrating tab PO ONE (22:14)
[2025-03-22] MEDS: ibuprofen tablet 400 MG TABLET PO ONE (22:14)
[2025-03-22] MEDS: HYDROcodone/acetaminophen 5mg/325mg tablet PO ONE (22:15)
[2025-03-22 22:19] VITALS: BP 124/80; PULSE 70; RESP 16; TEMP 98.2; O2SAT 99
== END 2025-03-22 22:28 | disposition home or self-care (01) ==
LOC: ER 21:17
DX: K40.90 Unilateral inguinal hernia, without obstruction or gangrene, not specified as recurrent (principal); Z88.8 Allergy status to other drugs, medicaments and biological substances; Z79.899 Other long term (current) drug therapy
CPT/HCPCS: 99284

== ENCOUNTER 2025-05-05 08:25 | Outpatient (CLI) | payer MEDICARE, MEDICAID ==
[~2025-05-05 08:25] MED LIST changes: +CLIN-224 PO; -CLIN-97 PO; -IBUP-1985 PO; +IBUP600T52 PO
[2025-05-05] MEDS ORDERED: GADOTERATE MEGLUMINE 7.5 MMOL/15 ML VIAL IV ONE (11:27)
--- NOTE | 2025-05-05 15:23 | RADIOLOGY REPORT ---
CLINICAL HISTORY: Ilioinguinal neuralgia of right side. Severe right groin, hip, and pelvic pain wor sening in frequency and intensity. Suspected ilioinguinal/pudendal nerve entrapment or vascular steno sis TECHNIQUE: Multi sequence multi planar MRI images of the pelvis were obtained prior to and after the uneventful administration of 15 mL Clariscan COMPARISON: CT CTA ABDOMEN PELVIS on DOS: 10/08/24, CT CT ABDOMEN PELVIS on DOS: 09/12/24, CT CT ABDOMEN PELVIS on DOS: 04/30/24 FINDINGS: Motion artifact limits evaluation. There is artifact from postsurgical changes in the righ t proximal femur, limiting evaluation of adjacent structures. Osseous structures appear otherwise int act. No evidence of acute fracture or focal marrow contusion visualized. Limited evaluation of the i lioinguinal nerve within the arpgl-[id number] of the exam and due to prominent artifact obscuring visual ization. Given these limitations, no mass, abnormal enhancement, or other abnormality visualized lovely ng the expected course of the right ilioinguinal nerve within the [id number] of the exam. No mass, abnormal enhancement, or other abnormality visualized along the expected course of the right pudenda l nerve. Mild fatty atrophy in the gluteus minimus muscles bilaterally. Otherwise normal muscle bulk in the visualized musculature of the pelvis. No evidence of muscle strain or tear. No suspicious pel lucy mass or fluid collection identified. Small bilateral hydroceles incidentally noted in the scrotum . There are scattered colonic diverticula without adjacent inflammatory changes seen on MRI to sugges t diverticulitis, although limited evaluation due to motion artifact. IMPRESSION: 1. Limited examination for the reasons described above. 2. No soft tissue mass or abnormal postcontrast enhancement. 3. Limited evaluation of the ileo inguinal and pudendal nerves for the reasons described above. No di screte mass or other abnormality identified along their expected courses within the pelvis. 4. Additional nonacute findings as described above.
== END 2025-05-05 23:59 | disposition home or self-care (01) ==
LOC: MRI 08:25
PROVIDERS: ATTEND Family Medicine
DX: G57.91 Unspecified mononeuropathy of right lower limb (principal)
CPT/HCPCS: 72197; A9575